=== PATIENT | male | born 1940 | race Caucasian/White ===

== ENCOUNTER → 2018-07-22 | Outpatient (CLI) | payer OTHER, MEDICARE ==
--- NOTE | 2018-07-23 18:25 | SLE ---
[facility] [place] [address] POLYSOMNOGRAPHY STUDY Name: RAGINI PACHECO Room #: REG [facility]#: [id number] Admission: 07/22/18 Attend Phys: Hector Garay MD Discharge: Date of : 38 Report #: [id number] THIS REPORT FOR: //name// CC: Hector Garay FAM unknown Gordon Adams MD DATE OF SERVICE: 07/22/2018 SLEEP STUDY ATTENDING PHYSICIAN: Dr. Gordon Adams. The patient is a 78-year-old who weighs 225 pounds with a BMI of 30.5. The patient's Dillwyn score was 6. The patient underwent split night study at [facility]. During the night study, the patient spent 511 minutes in bed and slept for 383 minutes with a sleep efficiency of 75%. Sleep latency was 63 minutes, which is prolonged with a REM latency of 366 minutes, which was prolonged as well. Sleep architecture showed normal stage 1 sleep, increased stage 2 sleep, normal slow wave and slightly reduced REM sleep, which was 15% of total sleep time. During the initial diagnostic portion of the study, the patient slept for 161 minutes. During that time, the patient had 10 apneas, 3 obstructive, 3 mixed and 4 central and 75 hypopneas. The patient's apnea-hypopnea index was 31.6 per hour. REM sleep was not seen. Supine index was 46 per hour. EKG monitoring revealed average heart rate of 68 beats per minute. No sustained arrhythmias observed. PLMS were seen at an index of 195 per hour and 6 per hour caused EEG arousals. Nocturnal oximetry study during diagnostic portion revealed an average oxygen saturation of 93% with a lowest of 83%. 70 minutes were spent in oxygen saturation of less than 89%. The patient met the criteria for CPAP initiation. It was started at 5 cm water and titrated up to 7 cm water. At the final pressure, the patient slept for 64 minutes. The patient did not have REM sleep. The patient did have supine sleep throughout. The patient's AHI was reduced to 8.3 per hour. I would recommend that the patient should be placed on CPAP at 8 cm water since AHI was 8.3 per hour at a pressure of 7 cm water. Oxygen saturation remained above 90% at a CPAP of 7 [address] [address] POLYSOMNOGRAPHY STUDY Name: RAGINI PACHECO Room #: REG [facility]#: [id number] Admission: 07/22/18 Attend Phys: Hector Garay MD Discharge: Date of : 38 Report #: [id number] IMPRESSION: 1. Severe sleep apnea-hypopnea syndrome at an apnea-hypopnea index of 31.6 per hour with a supine apnea-hypopnea index of 46 per hour. 2. Nocturnal hypoxia secondary to obstructive sleep apnea, but resolved with continuous positive airway pressure. 3. Severe periodic limb movements during sleep. RECOMMENDATIONS: 1. CPAP at 8 cm water should be used on a nightly basis. 2. Follow up in 4-6 weeks to assess compliance with CPAP and to document clinical improvement and review of the download data. 3. The patient should also be further evaluated for symptoms of restless legs during the day and if present, it can be treated with dopaminergic agonist agents. 4. Weight loss is strongly advised. 5. Avoid [address] MAGISTRATE depressants. 6. Cautioned regarding driving until symptoms of sleep apnea resolve with the use of CPAP. <ELECTRONICALLY SIGNED> By: Hector Garay MD 07/23/18 1825 1501 [id number] Hector Garay MD /nt
== END ==
LOC: SLEEPLAB 10:01
DX: G47.33 Obstructive sleep apnea (adult) (pediatric) (principal); R09.02 Hypoxemia; G47.61 Periodic limb movement disorder

== ENCOUNTER → 2018-07-29 | Outpatient (CLI) | payer OTHER, MEDICARE ==
--- NOTE | 2018-07-29 11:49 | 2DMMODE ---
[facility] [place] [address] 2 D/M-MODE ECHOCARDIOGRAM Name: JUNIORRAGINI Room #: REG [facility] [id number] Admission: 07/29/18 Attend Phys: Weston Marks Discharge: Date of : 38 Date of Service: 07/29/18 1149 Report #: [id number] THIS REPORT FOR: //name// APPROVED REPORT Study performed: 07/29/2018 10:20:37 EXAM: Comprehensive 2D, Doppler, and color-flow Echocardiogram Patient Location: Out-Patient Status: routine BSA: 2.22 HR: 68 bpm BP: 126/74 mmHg Rhythm: NSR Other Information Study Quality: Adequate Technically limited study due to lung artifact. Indications Dyspnea HTN, HLP 2D Dimensions RVDd: 36.38 mm IVSd: 10.15 (7-11mm) LVOT Diam: 23.15 (18-24mm) LVDd: 47.53 mm PWd: 10.31 (7-11mm) LVDs: 35.49 (25-40mm) Aortic Root: 38.10 mm Volumes Left Atrial Volume (Systole) Single Plane 4CH: 39.16 mL Single Plane 2CH: 41.05 mL LA ESV Index: 20.00 mL/m2 Aortic Valve AoV Peak Vladimir.: 0.94 m/s AO Peak Gr.: 3.53 mmHg LVOT Max P.37 mmHg LVOT Max V: 0.77 m/s UBALDO Vmax: 3.45 cm2 Mitral Valve E/A Ratio: 0.8 [facility] [address] [place] [address] 2 D/M-MODE ECHOCARDIOGRAM Name: JUNIORRAGINI Room #: [facility]#: [id number] Admission: 07/29/18 Attend Phys: Weston Marks Discharge: Date of : 38 Date of Service: 07/29/18 1149 Report #: [id number] MV Decel. Time: 154.23 ms MV E Max Vladimir.: 0.80 m/s MV A Vladimir.: 0.98 m/s MV PHT: 44.73 ms IVRT: 59.98 ms Pulmonary Valve PV Peak Vladimir.: 0.76 m/s PV Peak Gr.: 2.30 mmHg Tricuspid Valve TR Peak Vladimir.: 2.30 m/s TR Peak Gr.: 21.20 mmHg Left Ventricle The left ventricle is normal size. There is normal LV segmental wall motion. There is normal left ventricular wall thickness. Left ventricular systolic function is normal. LVEF is 50-55%. Mild diastolic dysfunction is present (impaired relaxation pattern). Right Ventricle The right ventricle is normal size. The right ventricular systolic function is normal. Atria The left atrium size is normal. The right atrium size is normal. Aortic Valve The aortic valve is grossly normal in structure. No aortic regurgitation is present. There is no aortic valvular stenosis. Mitral Valve The mitral valve is normal in structure. Mild mitral regurgitation. No evidence of mitral valve stenosis. Tricuspid Valve The tricuspid valve is normal in structure. Mild tricuspid regurgitation. Estimated PAP is 21mmHg plus the right atrial pressure. Pulmonic Valve Pulmonic valve is not well visualized. [employer] [place] [facility] [address] [place] [address] 2 D/M-MODE ECHOCARDIOGRAM Name: RAGINI PACHECO Room #: [facility].#: [id number] Admission: 07/29/18 Attend Phys: Weston Marks Discharge: Date of : 38 Date of Service: 07/29/18 1149 Report #: [id number] Aortic root is borderline dilated. Ascending aorta is not well visualized. IVC is not well visualized. Pericardium There is no pericardial effusion. <Conclusion> The left ventricle is normal size. There is normal left ventricular wall thickness. Left ventricular systolic function is normal. Mild diastolic dysfunction is present (impaired relaxation pattern). The right ventricle is normal size. The left atrium size is normal. The right atrium size is normal. The aortic valve is grossly normal in structure. Mild mitral regurgitation. Mild tricuspid regurgitation. Estimated PAP is 21mmHg plus the right atrial pressure. <ELECTRONICALLY SIGNED> By: Bob Matias MD 07/29/18 1149 1149 48 Bob Matias MD /INF
== END ==
LOC: CV → CAT 07-24 11:57 → CV 07-24 11:59
DX: I08.1 Rheumatic disorders of both mitral and tricuspid valves (principal); J98.11 Atelectasis

== ENCOUNTER → 2021-03-07 | Outpatient (CLI) | payer OTHER, MEDICARE | LOC: RAD 12:30 | PROVIDERS: ATTEND Pediatrics | DX: J44.9 Chronic obstructive pulmonary disease, unspecified (principal); J98.4 Other disorders of lung; R06.02 Shortness of breath; I70.0 Atherosclerosis of aorta ==